=== PATIENT | male | born 1985 | race Caucasian/White ===

== ENCOUNTER 2019-08-28 03:49 | Emergency (ER) | payer MEDICAID ==
[~2019-08-28] VITALS: Ht 182.9 cm; Wt 82.0 kg
[2019-08-28 04:09] VITALS: BP 114/72
[2019-08-28 07:27] LABS: CLARITY URINE CLEAR (CLEAR); COLOR URINE DARK YELLOW (YELLOW); KETONES URINE TRACE (NEGATIVE); LEUKOCYTE ESTERASE URINE TRACE (NEGATIVE); NITRITE URINE NEGATIVE (NEGATIVE); OCCULT BLOOD URINE NEGATIVE (NEGATIVE); PH URINE 5.5 (4.5-8.0); PROTEIN URINE NEGATIVE (NEGATIVE); SPECIFIC GRAVITY URINE 1.036 (1.005-1.030)
[2019-08-28 07:34] LABS: *BARBITURATES SCREEN URINE NEGATIVE (NEGATIVE); *BENZODIAZEPINES SCREEN URINE NEGATIVE (NEGATIVE); *COCAINE SCREEN URINE NEGATIVE (NEGATIVE); CANNABINOID URINE SCREEN NEGATIVE (NEGATIVE); PHENCYCLIDINE URINE SCREEN NEGATIVE (NEGATIVE)
[2019-08-28 07:35] LABS: *AMPHETAMINES SCREEN URINE PRESUMTIVE POSITIVE (NEGATIVE); METHADONE URINE SCREEN NEGATIVE (NEGATIVE); OPIATES URINE SCREEN NEGATIVE (NEGATIVE)
== END 2019-08-28 07:24 | disposition left against medical advice (07) ==
LOC: ER 05:33
DX: Z59.0 Homelessness (principal)
CPT/HCPCS: 80305; 81003; 99283

== ENCOUNTER → 2019-12-21 | Emergency (ER) | payer MEDICAID | LOC: ER 04:40 | DX: I10 Essential (primary) hypertension (principal); Z53.21 Procedure and treatment not carried out due to patient leaving prior to being seen by health care provider ==

== ENCOUNTER 2020-02-23 11:34 | Emergency (ER) | payer MEDICAID ==
[~2020-02-23] VITALS: Ht 182.9 cm; Wt 62.0 kg
[2020-02-23 11:41] VITALS: BP 125/69
== END 2020-02-23 13:56 | disposition home or self-care (01) ==
LOC: ER 11:34
DX: T40.991A Poisoning by other psychodysleptics [hallucinogens], accidental (unintentional), initial encounter (principal); R20.0 Anesthesia of skin; R53.1 Weakness; J39.2 Other diseases of pharynx; F16.188 Hallucinogen abuse with other hallucinogen-induced disorder; M79.642 Pain in left hand; M79.641 Pain in right hand; Y92.89 Other specified places as the place of occurrence of the external cause
CPT/HCPCS: 82962; 99282